=== PATIENT | female | born 1995 | race Caucasian/White ===

== ENCOUNTER 2017-10-13 08:08 | Emergency (ER) | payer OTHER ==
[~2017-10-13] VITALS: Ht 160 cm; Wt 59.0 kg
[2017-10-13 08:08] VITALS: BP_SYST 106
[2017-10-13] MEDS ORDERED: MAG HYDROX/AL HYDROX/SIMETH 30 ML, BELLADONNA ALKALOIDS/PHENOBARB 10 ML, LIDOCAINE VISC... PO ONE ×3 (09:00)
[2017-10-13] MEDS ORDERED: ONDANSETRON 4 MG ODT TAB PO ONE (09:00)
[2017-10-13 10:12] VITALS: BP_SYST 106
== END 2017-10-13 10:12 | disposition home or self-care (01) ==
LOC: SED 08:08
DX: K29.20 Alcoholic gastritis without bleeding (principal)
CPT/HCPCS: 99283; J2001; Q0162